=== PATIENT | male | born 1960 | race Caucasian/White ===

== ENCOUNTER 2020-04-13 00:17 | Emergency (ER) | payer MEDICARE ==
[2020-04-13] MEDS ORDERED: CIPROFLOXACIN HCL/DEXAMETH OTIC DROP 7.5 ML AS ONE (01:30)
[2020-04-13] MEDS ORDERED: HYDROCODONE/ACETAMINOPHEN 5-325 MG (6 TAB/ER DISP) PO PRN (01:30)
--- NOTE | 2020-04-13 01:33 | ER Document Report ---
HPI - HPI Patient complains to provider of: Left ear pain Time Seen by Provider: 04/13/20 01:25 Onset/Duration: Persistent Quality of pain: Sharp Pain Level: 4 Context: Patient presents complaining of left ear pain for the past 2 days. Patient denies any fever or drainage from the ear. Associated Symptoms: Earache. denies: Fever Exacerbated by: Denies Relieved by: Denies Similar symptoms previously: No Recently seen / treated by doctor: No - ROS ROS below otherwise negative: Yes Systems Reviewed and Negative: Yes All other systems reviewed and negative - CONSTITUTIONAL Constitutional: DENIES: Fever - EENT EENT: REPORTS: Ear Pain - RESPIRATORY Respiratory: DENIES: Coughing - GASTROINTESTINAL Gastrointestinal: DENIES: Patient vomiting - MUSCULOSKELETAL Musculoskeletal: DENIES: Neck Pain - DERM Skin Color: Normal Skin Problems: None Past Medical History - General Information source: Patient - Social History Smoking Status: Never Smoker Frequency of alcohol use: None Drug Abuse: None Lives with: Family Family History: Reviewed & Not Pertinent Musculoskeletal Medical History: Reports Hx Arthritis Past Surgical History: Reports: Hx Orthopedic Surgery Vertical Provider Document - CONSTITUTIONAL Agree With Documented VS: Yes Exam Limitations: No Limitations General Appearance: WD/WN, No Apparent Distress - HEENT HEENT: Atraumatic, Normocephalic. negative: Pharyngeal Exudate, Pharyngeal Tenderness, Pharyngeal Erythema, Tympanic Membrane Red, Tympanic Membrane Bulging Notes: Swelling to left external auditory canal, left TM unable to be visualized, no mastoid tenderness or swelling. Patient does have pain with movement of left helix - NECK Neck: Normal Inspection, Supple - RESPIRATORY Respiratory: Breath Sounds Normal, No Respiratory Distress - CARDIOVASCULAR Cardiovascular: Regular Rate, Regular Rhythm - BACK Back: Normal Inspection - MUSCULOSKELETAL/EXTREMETIES Musculoskeletal/Extremeties: MAEW - NEURO Level of Consciousness: Awake, Alert, Appropriate - DERM Integumentary: Warm, Dry Course - Re-evaluation Re-evalutation: 04/13/20 01:41 Patient with left otitis externa, no mastoid tenderness or swelling, patient nontoxic in appearance. Discussed worsening signs or symptoms of patient should return immediately for. Patient verbalized understanding and is agreeable with discharge plan of care. - Vital Signs Vital signs: Temp Pulse Resp BP Pulse Ox 98.8 F 74 16 125/71 99 04/13/20 00:42 04/13/20 00:42 04/13/20 00:42 04/13/20 00:42 04/13/20 00:42 Discharge - Discharge Clinical Impression: Left otitis externa Qualifiers: Otitis externa type: unspecified type Chronicity: acute Qualified Code(s): H60.502 - Unspecified acute noninfective otitis externa, left ear Condition: Stable Disposition: HOME, SELF-CARE Instructions: Use of Ear Drops ([facility]), Using Ear Drops with a Wick ([facility]), Otitis Externa ([facility]) Additional Instructions: Return immediately for any new or worsening symptoms Followup with your primary care provider, call tomorrow to make a followup appointment Instill Ciprodex 4 drops to left ear canal twice a day for 7 days. Referrals: [facility] [Provider Group] - Follow up as needed
[2020-04-13 02:19] VITALS: BP 120/70
== END 2020-04-13 01:41 | disposition home or self-care (01) ==
LOC: ER 00:17
DX: H60.502 Unspecified acute noninfective otitis externa, left ear (principal); H92.02 Otalgia, left ear
CPT/HCPCS: 99282; A9270 ×2; J3490